=== PATIENT | male | born 1960 | race Caucasian/White ===

== ENCOUNTER 2021-10-02 07:42 | Emergency (ER) | payer OTHER, SELFPAY ==
--- NOTE | ~2021-10-02 | XR_ITS ---
EXAMINATION: XR RIBS, LEFT CLINICAL INFORMATION: Fall, left lower rib pain COMPARISON: None TECHNIQUE: 3 views of the left ribs were obtained. FINDINGS: Lungs are clear. No consolidation, pneumothorax, or pleural effusion. The cardiomediastinal silhouette and pulmonary vasculature are normal. Multiple views of left ribs reveal no visible fracture or bony abnormality. Bony thorax is unremarkable except for mild spondylosis throughout mid and lower dorsal spine. The soft tissues are normal. XR/XR ribs LT min 3V w CXR1V IMPRESSION: Unremarkable chest exam. Unremarkable left rib exam. No acute fracture seen.
[2021-10-02 07:50] VITALS: BP 133/85; PULSE 76; RESP 18; TEMP 36.6; O2SAT 100; BMI 29.7
--- NOTE | 2021-10-02 08:22 | ECG_ITS ---
Test Reason : cp Blood Pressure : / mmHG Vent. Rate : 067 BPM Atrial Rate : 067 BPM P-R Int : 150 ms QRS Dur : 088 ms QT Int : 408 ms P-R-T Axes : 005 004 023 degrees QTc Int : 431 ms Normal sinus rhythm RSR' or QR pattern in V1 suggests right ventricular conduction delay Otherwise normal ECG When compared with ECG of 21-APR-2015 20:05, ST no longer elevated in Inferior leads ST no longer depressed in Lateral leads Nonspecific T wave abnormality no longer evident in Lateral leads Referred By: Afshan Phealn Electronically Signed By:EDY AMOS MD
--- NOTE | 2021-10-02 08:24 | ED_ITS ---
HPI - Fall General Chief Complaint: Fall Stated Complaint: fall - lt side abd pain Time Seen by Provider: 10/02/21 08:12 Source: patient Mode of arrival: ambulatory History of Present Illness HPI Narrative: 61-year-old male past medical history of hyperlipidemia, hypertension, MO s/p stent presenting to the ED complaining of intermittent left lower anterior rib/LUQ pain s/p mechanical slip and fall down about 10 stairs this morning around 3:00 a.m. Denies symptoms prior to fall. Reports slipped secondary to wearing socks on hardwood floor landing on buttock/back. Admits to whole body pain, denies head trauma or LOC, has been ambulatory since incident. Denies incontinence/retention. Denies CP/SOB, numbness/tingling Patient takes ASA, denies other anticoagulation MD complaint: fall Onset (ago): hour(s) Related Data Previous Rx's Medication Instructions Recorded acetaminophen 500 mg tablet 500 mg PO Q6H PRN #20 tab 10/02/21 (Tylenol Extra Strength) cyclobenzaprine 5 mg tablet 5 mg PO Q8H PRN 5 Days #14 tab 10/02/21 lidocaine 5 % topical patch 1 patch TOPICAL DAILY PRN #30 ea 10/02/21 (Lidoderm) MDD remove after 12 hours Allergies Allergy/AdvReac Type Severity Reaction Status Date / Time No Known Allergies Allergy Unverified 07/21/20 14:42 [No Known Allergies*] Review of Systems Review of Systems: Constitutional: No Fever, No Chills,No Fatigue, No Malaise ENT/Mouth: No Ear Pain, No Nasal Congestion, No sore throat Eyes: No Eye Pain, No Swelling, No Redness Cardiovascular: No Chest Pain, No SOB Respiratory: No Cough, No Dyspnea Gastrointestinal: No Nausea, No Vomiting, No Diarrhea, No Constipation, + Abdominal pain Genitourinary: No Hematuria, No Urinary Incontinence/retention, No Urgency, No Flank Pain Musculoskeletal: + joint pain, + Myalgias, No Joint Swelling Skin: No Skin Lesions, No rash Neuro: No Weakness, No Numbness, No Paresthesias, No Loss of Consciousness, No Dizziness, No Headache Yes all other systems are reviewed and are negative [facility] Past Medical History Attestation statement: The following information was validated with the patient. Medical History (Updated 10/02/21 @ 09:22 by PAMELA Ko) High cholesterol HTN (hypertension) Myocardial infarction Surgical History (Updated 10/02/21 @ 07:55 by Salvador Newman) Hx of heart artery stent Social History Social History Advance Directives: No Physical Exam Vital Signs: Vital Signs: Last Vital Signs Temp 98 F 10/02/21 07:50 Pulse 76 10/02/21 07:50 Resp 18 10/02/21 07:50 BP 133/85 10/02/21 07:50 Pulse Ox 100 10/02/21 07:50 Body Mass Index 29.7 Const: General: cooperative, healthy appearing and no acute distress Orientation/consciousness: patient oriented x3 Limitations: no limitations HENMT: Head: Yes normal to inspection and Yes atraumatic Ears: hearing grossly normal bilaterally General nose exam: Normal external nose present Face and sinus: Yes normal facial exam Eyes: General: appearance normal, both eyes and all related structures EOM: EOMs intact bilaterally Neck: Neck: Yes normal visual inspection and Yes no meningeal signs Chest: Chest palpation & inspection: normal inspection of the chest, no crepitus and no tenderness Resp: Effort & Inspection: normal respiratory effort, no respiratory distress, no stridor and not tachypneic Auscultation: clear to auscultation bilaterally Cardio: Rate: regular rate Heart sounds: S1 normal heart sound present and S2 normal heart sound present GI: Inspection: Yes normal to inspection Palpation (GI): Soft to palpation, nontender, no guarding and not rigid : General: Yes no CVA tenderness Back/Spine/Pelvis: Other: No midline thoracic/lumbar spinous tenderness/Step- off or deformity.. No paraspinal tenderness Back: no CVA tenderness Skin: Rashes: no rashes Wounds: no wounds Neuro: General: patient oriented x3, tone normal, moves all extremities, no meningeal signs and no focal motor deficits Gait exam (Neuro): Normal gait present Extrem: General: Yes normal to inspection Course Course Course Narrative: XR ribs LT min 3V w CXR1V IMPRESSION: Unremarkable chest exam. ? Unremarkable left rib exam. No acute fracture seen. >> worsening signs and symptoms and strict return precautions discussed with patient he verbalized understanding feel safe for discharge home to follow-up with PCP MDM - Fall MDM Narrative Medical decision making narrative: 61-year-old male past medical history of hyperlipidemia, hypertension, MO s/p stent presenting to the ED complaining of intermittent left lower anterior rib/LUQ pain s/p mechanical slip and fall down about 10 stairs this morning around 3:00 a.m. On exam vital signs stable, NAD/nontoxic, no midline spinous tenderness throat, no rib tenderness/crepitus, abdomen is soft/nontender. Concern for MSK pain versus rib contusion. Rule out fracture. Low concern for ACS, intra-abdominal injury/retroperitoneal hematoma/bleeding or splenic injury Plan: EKG, CXR/rib series Differential Diagnosis Differential diagnosis: Likely fracture Medical Records Attestation: I reviewed the patient's medical records. Lab Data Attestation: I reviewed the patient's lab results. ECG Data Attestation: I personally reviewed and interpreted this ECG as follows: ECG interpretation date: 10/02/21 ECG interpretation time: 09:23 Interpretation: EKG normal sinus rhythm with a rate of 67. MT interval 150. QRS 88. QTC 431. Nonischemic/no STEMI Discharge Plan Discharge Clinical Impression: Rib pain on left side Patient Disposition: Home, Self-Care Instructions: Rib Contusion (ED) Additional Instructions: Your Your x-rays are unremarkable, it is likely you have a bruised rib. pain is likely musculoskeletal Flexeril is a muscle relaxer, take at night as it makes you drowsy, do not drive, drink alcohol, or operate machinery while taking it Lidoderm patches are numbing patches, apply to painful area In addition take Tylenol at home If symptoms persist or worsen, pain becomes unbearable, He develops shortness breath, chest pain, fever, urinary retention or incontinence, or weakness return to the ED Prescriptions: New acetaminophen [Tylenol Extra Strength] 500 mg tablet 500 mg PO Q6H PRN (Reason: pain or fever) Qty: 20 RF: 0 lidocaine [Lidoderm] 5 % adhesive patch,medicated 1 patch topical DAILY MDD remove after 12 hours PRN (Reason: pain) Qty: 30 RF: 0 cyclobenzaprine 5 mg tablet 5 mg PO Q8H PRN (Reason: pain (scale score 7-10)) 5 Days Qty: 14 RF: 0 Referrals: Physician,Unknown J [Primary Care Provider] - 2 days
== END 2021-10-02 09:57 | disposition home or self-care (01) ==
PROVIDERS: Emergency Provider Emergency Medicine
DX: R07.81 Pleurodynia (principal); R10.32 Left lower quadrant pain; Z79.899 Other long term (current) drug therapy
CPT/HCPCS: 71101; 93005; 99283; 99284

== ENCOUNTER → 2021-10-05 11:35 | Outpatient (BNVA) | payer OTHER, SELFPAY | PROVIDERS: Visit Provider Physician Assistant | DX: S61.012A Laceration without foreign body of left thumb without damage to nail, initial encounter (principal); W26.8XXA Contact with other sharp object(s), not elsewhere classified, initial encounter | CPT/HCPCS: 12002; 99202 ==

== ENCOUNTER → 2021-10-06 07:53 | Outpatient (BNVA) | payer OTHER, SELFPAY | PROVIDERS: Visit Provider Internal Medicine | DX: S61.012A Laceration without foreign body of left thumb without damage to nail, initial encounter (principal); W23.1XXA Caught, crushed, jammed, or pinched between stationary objects, initial encounter | CPT/HCPCS: 99213 ==

== ENCOUNTER → 2021-10-13 07:45 | Outpatient (BNVA) | payer OTHER, SELFPAY | PROVIDERS: Visit Provider Internal Medicine | DX: Z48.02 Encounter for removal of sutures (principal); S61.012A Laceration without foreign body of left thumb without damage to nail, initial encounter; W23.0XXA Caught, crushed, jammed, or pinched between moving objects, initial encounter | CPT/HCPCS: 99212; 99213 ==

== ENCOUNTER 2022-12-24 05:11 | Emergency (ER) | payer OTHER, SELFPAY ==
[2022-12-24 05:17] VITALS: BP 135/82; PULSE 91; RESP 16; TEMP 36.7; O2SAT 99; BMI 29.2
--- NOTE | 2022-12-24 06:48 | ED.SKABFB ---
HPI - Skin/Abscess/Foreign Bdy General Chief complaint: Skin/Abscess/Foreign Body Stated complaint: Abscess -Groin area Time Seen by Provider: 12/24/22 06:43 Source: patient Mode of arrival: ambulatory Limitations: no limitations History of Present Illness HPI narrative: left groin abscess for 4 days complaint: abscess/boil Onset (ago): day(s) Tetanus up to date: yes Severity: mild Quality: burning, stabbing and sharp Pain Consistency: constant Associated symptoms: denies other symptoms Treatments prior to arrival: none Related Data Home Medications Medication Instructions Recorded Confirmed atorvastatin 40 mg tablet 40 mg PO DAILY 07/20/22 metoprolol succinate 50 mg 50 mg PO DAILY 07/20/22 tablet,extended release 24 hr Previous Rx's Medication Instructions Recorded acetaminophen 500 mg tablet 500 mg PO Q6H PRN pain or fever 10/02/21 (Tylenol Extra Strength) #20 tabs amoxicillin 875 mg-potassium 1 tab PO BID 10 days #20 tabs 07/20/22 clavulanate 125 mg tablet prednisone 20 mg tablet 40 mg PO DAILY 5 days #10 tabs 07/20/22 Allergies Allergy/AdvReac Type Severity Reaction Status Date / Time No Known Allergies Allergy Verified 07/20/22 10:50 [No Known Allergies*] Review of Systems Review of Systems: Yes all other systems are reviewed and are negative Integumentary/Breasts: Comments: pain, swelling and redness Neurologic: Denies Sensory deficit (Neuro) [facility] Past Medical History Medical History High cholesterol HTN (hypertension) Myocardial infarction Surgical History Hx of heart artery stent Social History Social History Patient Tobacco Use Status: Current everyday Tobacco user Advance Directives: No Advance Directives Information Provided: Yes Physical Exam Vital Signs: Vital Signs: Last Vital Signs Temp 98.7 F 12/24/22 07:43 Pulse 72 12/24/22 07:43 Resp 17 12/24/22 07:43 BP 119/76 12/24/22 07:43 Pulse Ox 98 12/24/22 07:43 O2 Del Method 12/24/22 07:43 BMI result Body Mass Index 29.2 Const: General: healthy appearing Nutritional Appearance: average body habitus Orientation/consciousness: oriented to person and patient oriented x3 Limitations: no limitations HEENT: Head: Yes normal to inspection Ears: external ears normal General nose exam: Normal external nose present Mouth: Normal oral and palatal mucosa present and oropharynx normal Throat: Yes posterior oropharynx normal Eyes: General: appearance normal, both eyes and all related structures Neck: Other: supple Neck: Yes normal visual inspection Chest: Chest palpation & inspection: normal inspection of the chest Resp: Auscultation: clear to auscultation bilaterally Cardio: Jugular venous distension: no JVD Rate: regular rate Rhythm: regular rhythm Heart sounds: S1 normal heart sound present and S2 normal heart sound present GI: Inspection: Yes normal to inspection Palpation (GI): Soft to palpation, nontender and No hepatosplenomegaly present Auscultation: normal bowel sounds : General: Yes no CVA tenderness Back/Spine/Pelvis: Back: no CVA tenderness Skin: Other: left groin with redness and swelling Neuro: General: oriented to person and patient oriented x3 Cranial nerves: Yes CN's II-XII intact bilaterally Motor exam (neuro): 5/5 motor strength present throughout Sensory Exam: No Sensory deficit (Neuro) Extrem: General: Yes normal to inspection Psych: Appearance: grossly normal Course Reevaluation(s) Reevaluation #1: abscess drained will dc home Time: 09:09 Medical Decision Making Lab Data MDM Lab Attestation statement: I reviewed the patient's lab results. 12/24/22 07:38 12/24/22 07:38 Labs: Lab Results 12/24/22 12/24/22 Range/Units 07:38 07:38 WBC 9.0 (4.8-10.8) X10*3/uL RBC 4.74 (4.60-5.80) X10*6/uL Hgb 15.4 (14.0-18.0) g/dl Hct 45.0 (42.0-52.0) % MCV 94.9 (80.0-98.0) fL MCH 32.5 (27.0-33.0) pg MCHC 34.2 (31.0-36.0) g/dl RDW 12.6 (11.0-16.0) % Plt Count 172 (160-400) X10*3/uL MPV 9.6 (9.4-12.4) fL Immature Gran % (Auto) 0.3 (0.0-0.4) % Neut % (Auto) 80.7 H (45-73) % Lymph % (Auto) 11.8 L (20-40) % [place] % (Auto) 6.7 (2-11) % Eos % (Auto) 0.2 (0-4) % Baso % (Auto) 0.3 (0-2) % Lymph # (Auto) 1.1 L (1.2-4.9) X10*3/uL [place] # (Auto) 0.6 (0.1-1.2) X10*3/uL Eos # (Auto) 0.0 (0.0-0.4) X10*3/uL Baso # (Auto) 0.0 (0.0-0.2) X10*3/uL Abs Immat Gran (auto) 0.03 (0.00-0.03) X10*3/uL Absolute Neuts (auto) 7.3 (2.0-8.3) x10*3/uL Absolute Nucleated RBC 0.000 (0.0-0.012) X10*3/uL Nucleated RBC % (auto) 0.0 (0.0-0.2) /100WBC Sodium 139 (135-145) mmol/L Potassium 4.9 (3.3-5.1) mmol/L Chloride 107 (96-108) mmol/L Carbon Dioxide 25 (22-29) mmol/L Anion Gap 12 (12-20) BUN 11 (9-16) mg/dL Creatinine 0.82 (0.5-1.4) mg/dL Estim Creat Clear Calc 103.5 Estimated GFR > 60 Random Glucose 84 (60-115) mg/dL Calcium 9.1 (8.4-10.2) mg/dL Total Bilirubin 0.8 (0.0-1.0) mg/dL AST 17 (5-37) U/L ALT 13 (0-40) U/L Alkaline Phosphatase 86 (39-117) U/L Total Protein 7.5 (6.5-8.0) g/dL Albumin 3.5 (3.5-5.0) g/dL Independent Interpretation Interpretation: bedside ultrasound of the left inuguinal area shows large abscess Procedures Procedure Narrative Procedure Narrative: Patient prepped and draped in sterile fashion. 1% epi with lidocaine used for anesthesia. 11 blade used, pus removed, packing placed. Patient tolerated procedure well Discharge Plan Discharge Clinical Impression: Abscess of skin or subcutaneous tissue Patient Disposition: Home, Self-Care Instructions: Abscess (ED) Additional Instructions: packing removal in 48 hours, return for increased redness and swelling Prescriptions: No Action acetaminophen [Tylenol Extra Strength] 500 mg tablet 500 mg PO Q6H PRN (Reason: pain or fever) Qty: 20 0RF atorvastatin 40 mg tablet 40 mg PO DAILY metoprolol succinate 50 mg tablet extended release 24 hr 50 mg PO DAILY prednisone 20 mg tablet 40 mg PO DAILY 5 Days Qty: 10 0RF amoxicillin-pot clavulanate 875-125 mg tablet 1 tab PO BID 10 Days Qty: 20 0RF Referrals: Physician,None [Primary Care Provider] - 1 week
[2022-12-24 07:42] LABS: MANUAL DIFF FLAG NO
[2022-12-24 07:43] VITALS: BP 119/76; PULSE 72; RESP 17; TEMP 37.1; O2SAT 98
[2022-12-24 07:43] LABS: Basophils Percent Auto 0.3 % (0-2); Eosinophils Percent Auto 0.2 % (0-4); Hemoglobin 15.4 g/dl (14.0-18.0); Imm Gran Abs Auto 0.03 X10*3/uL (0.00-0.03); Imm Gran Pct Auto 0.3 % (0.0-0.4); Lymphocytes Absolute Auto 1.1 X10*3/uL (1.2-4.9); Lymphocytes Percent Auto 11.8 % (20-40); Mean Corpuscular HGB Conc 34.2 g/dl (31.0-36.0); Mean Corpuscular Hemoglobin 32.5 pg (27.0-33.0); Mean Corpuscular Volume 94.9 fL (80.0-98.0); Mean Platelet Volume 9.6 fL (9.4-12.4); Monocytes Absolute Auto 0.6 X10*3/uL (0.1-1.2); Monocytes Percent Auto 6.7 % (2-11); Neutrophils Absolute Auto 7.3 x10*3/uL (2.0-8.3); Neutrophils Percent Auto 80.7 % (45-73); Platelet Count 172 X10*3/uL (160-400); Red Blood Count 4.74 X10*6/uL (4.60-5.80); Red Cell Distribution Width 12.6 % (11.0-16.0)
[2022-12-24 08:00] VITALS: RESP 18
[2022-12-24 08:00] LABS: Alanine Aminotransferase 13 U/L (0-40); Albumin Level 3.5 g/dL (3.5-5.0); Alkaline Phosphatase 86 U/L (39-117); Anion Gap 12 (12-20); Aspartate Amino Transferase 17 U/L (5-37); Bilirubin Total 0.8 mg/dL (0.0-1.0); Blood Urea Nitrogen 11 mg/dL (9-16); Calcium 9.1 mg/dL (8.4-10.2); Carbon Dioxide 25 mmol/L (22-29); Chloride 107 mmol/L (96-108); Creatinine Clr Calc Pharmacy 103.5; Estimated Glomerular Filt Rate > 60; Glucose Random 84 mg/dL (60-115); Potassium 4.9 mmol/L (3.3-5.1); Sodium 139 mmol/L (135-145); Total Protein 7.5 g/dL (6.5-8.0)
== END 2022-12-24 09:45 | disposition home or self-care (01) ==
PROVIDERS: Emergency Provider Emergency Medicine
DX: L02.214 Cutaneous abscess of groin (principal); F17.200 Nicotine dependence, unspecified, uncomplicated; Z71.6 Tobacco abuse counseling; Z79.899 Other long term (current) drug therapy
CPT/HCPCS: 10060; 36415; 80053; 85025; 99284

== ENCOUNTER 2024-06-03 16:42 | Emergency (ER) | payer OTHER, SELFPAY ==
--- NOTE | ~2024-06-03 | US_ITS ---
EXAMINATION: US VENOUS ULTRASOUND WITH DOPPLER LOWER EXTREMITY, RIGHT CLINICAL INFORMATION: Thigh pain COMPARISON: None available. TECHNIQUE: Ultrasound of the deep veins is performed from the hip to the calf with compression sonography and color and pulse Doppler assessment. Spectral analysis with color-flow imaging is performed. FINDINGS: There is normal venous compression and respiratory variation and augmented flow. The visualized common femoral vein, superficial femoral vein, profunda femoral vein, popliteal vein, and the trifurcation region shows no evidence of deep venous thrombosis. There is no significant popliteal fossa cyst. A small knee joint effusion is present. The contralateral left common femoral vein appears normal. If the patient's symptoms persist, followup ultrasound in 5 days 7 days might be of value to exclude proximal propagation from a non-visualized calf vein. US/US venous duplex LE RT IMPRESSION: No DVT demonstrated in the right lower extremity.
[2024-06-03 16:46] VITALS: BP 108/78; PULSE 75; RESP 16; TEMP 36.6; O2SAT 98; BMI 28.3
--- NOTE | 2024-06-03 16:48 | ED.LOWEXIN ---
HPI - Extremity Injury (Lower) General Chief Complaint: Extremity Injury, Lower Stated Complaint: Right leg pain Time Seen by Provider: 06/03/24 17:40 Source: patient Mode of arrival: ambulatory Limitations: no limitations History of Present Illness HPI Narrative: Patient is a 64-year-old male who presents emergency department for evaluation of intermittent right lower extremity pain. Reports onset approximately 1-1.5 months ago. Reports pain is worse with ambulation and alleviates with rest. Pain is felt from the thigh all the way down to the calf. Onto occurrences he has taken ibuprofen 400 mg which typically helps with the pain in addition to rest. He admits to having a cardiac history with stenting and reports compliance with his aspirin. He denies any history of DVT/PE. He denies any redness warmth or fevers. Related Data Home Medications ?Medication ?Instructions ?Recorded ?Confirmed atorvastatin 40 mg tablet 40 mg PO DAILY 07/20/22 01/31/23 metoprolol succinate 50 mg 50 mg PO DAILY 07/20/22 01/31/23 tablet,extended release 24 hr Previous Rx's ?Medication ?Instructions ?Recorded acetaminophen 500 mg tablet 500 mg PO Q6H PRN pain or fever 10/02/21 (Tylenol Extra Strength) #20 tabs cephalexin 500 mg capsule 500 mg PO QID cellulitis 7 days 03/06/23 #28 caps Allergies Allergy/AdvReac Type Severity Reaction Status Date / Time No Known Allergies Allergy Verified 06/03/24 16:49 [No Known Allergies*] Review of Systems Review of Systems: Yes all other systems are reviewed and are negative PMFSH Past Medical History Attestation statement: The following information was validated with the patient. Source: old records reviewed Medical History High cholesterol HTN (hypertension) Myocardial infarction Surgical History Hx of heart artery stent Social History Social History Alcohol intake: unknown Patient Tobacco Use Status: Current everyday Tobacco user Smoked in Last 30 Days: Yes Use of substances other than those prescribed or required for medical reasons: No Advance Directives: No Advance Directives Information Provided: No Do you have a plan to hurt others: No Plan Physical Exam Vital Signs: Vital Signs: Last Vital Signs Temp 98.6 F 06/03/24 17:42 Pulse 64 06/03/24 17:42 Resp 16 06/03/24 17:42 BP 115/70 06/03/24 17:42 Pulse Ox 97 06/03/24 17:42 O2 Del Method Room Air 06/03/24 17:42 BMI result Body Mass Index 28.3 Appearance: Alert.?Oriented to person, place and time. No acute distress.?Normal affect. Eyes: Pupils equal, round and reactive to light.? ENT: Pharynx normal.?? Neck: Normal inspection.? Neck supple.?? CVS: Heart sounds normal. Normal heart rate and rhythm.? Pulses normal.?? Respiratory: No respiratory distress.? Lung sounds clear to auscultation bilaterally?? Abdomen: Soft and non-tender. Normoactive bowel sounds. Skin: Skin warm and dry.? Normal skin color.? Extremities: No lower extremity edema.? No calf ttp. No erythema or warmth. 2+ DP/PT pulse bilaterally. Full range of motion to right hip knee and ankle. ? Neuro: Moves all extremities spontaneously. Sensation intact bilaterally. Ambulates with normal steady gait. Course Course Course Narrative: This is a Rapid Medical Examination (RME) performed by Hector Barker PA-C in triage. Full HPI, ROS, assessment and treatment plan per primary provider in the Main ED. 64 yo male hx of HDL, HTN, MA w/ stent on AC presents to the ED today for eval of RLE pain x1 month, worsening over the last few days. pain extends from right thigh down to right calf. + no calf tenderness. no noted swelling/ erythema to RLE. Plan: labs, venous duplex Medical Decision Making Medical Decision Making MDM Narrative: Patient is a 64-year-old male with past medical history of HDL, HTN, MA w/ stent on aspirin who presents emergency department for evaluation of exertional right lower extremity pain as per HPI. Overall appears well, nontoxic, afebrile. Extremity is neurovascularly intact distally, no sign of infectious symptoms. Venous duplex ultrasound was obtained prior to my assumption of care and is without evidence of DVT. Examination is not consistent with peripheral ischemia, arterial occlusion. Symptoms appear most consistent with claudication which is more likely given his cardiac history. He is already taking aspirin. I advised close outpatient follow-up with his client service representative as scheduled, and reviewed worrisome signs and symptoms that would warrant re-evaluation emergency department. All questions answered. Stable for discharge Differential Diagnosis Differential Diagnoses: The differential diagnosis associated with the presentation includes (See narrative above) Admission/Observation Consideration of admission/observation: Escalation of care including admission/observation considered Lab Data MDM Lab Attestation statement: I reviewed the patient's lab results. CBC is without leukocytosis anemia or thrombocytopenia. No electrolyte derangement. No SONNY. 06/03/24 17:07 06/03/24 17:07 Labs: Lab Results 06/03/24 Range/Units 17:07 WBC 5.3 (4.8-10.8) X10*3/uL RBC 4.33 L (4.60-5.80) X10*6/uL Hgb 14.9 (14.0-18.0) g/dl Hct 42.6 (42.0-52.0) % MCV 98.4 H (80.0-98.0) fL MCH 34.4 H (27.0-33.0) pg MCHC 35.0 (31.0-36.0) g/dl RDW 13.1 (11.0-16.0) % Plt Count 163 (160-400) X10*3/uL MPV 10.2 (9.4-12.4) fL Immature Gran % (Auto) 0.2 (0.0-0.4) % Neut % (Auto) 59.1 (45-73) % Lymph % (Auto) 34.4 (20-40) % [place] % (Auto) 5.1 (2-11) % Eos % (Auto) 0.8 (0-4) % Baso % (Auto) 0.4 (0-2) % Lymph # (Auto) 1.8 (1.2-4.9) X10*3/uL [place] # (Auto) 0.3 (0.1-1.2) X10*3/uL Eos # (Auto) 0.0 (0.0-0.4) X10*3/uL Baso # (Auto) 0.0 (0.0-0.2) X10*3/uL Abs Immat Gran (auto) 0.01 (0.00-0.03) X10*3/uL Absolute Neuts (auto) 3.2 (2.0-8.3) x10*3/uL Absolute Nucleated RBC 0.000 (0.0-0.012) X10*3/uL Nucleated RBC % (auto) 0.0 (0.0-0.2) /100WBC PT 12.5 (11.1-13.3) SEC INR 1.0 (0.9-1.1) Sodium 136 (135-145) mmol/L Potassium 3.8 (3.3-5.1) mmol/L Chloride 105 (96-108) mmol/L Carbon Dioxide 25 (22-29) mmol/L Anion Gap 10 L (12-20) BUN 13 (9-16) mg/dL Creatinine 0.87 (0.5-1.4) mg/dL Estim Creat Clear Calc 96.5 Estimated GFR > 60 Random Glucose 88 (60-115) mg/dL Calcium 9.2 (8.4-10.2) mg/dL Total Bilirubin 0.7 (0.0-1.0) mg/dL AST 21 (5-37) U/L ALT 18 (0-40) U/L Alkaline Phosphatase 65 (39-117) U/L Total Protein 7.9 (6.5-8.0) g/dL Albumin 3.6 (3.5-5.0) g/dL Independent Interpretation I performed an independent interpretation of an: Ultrasound (No DVT) Radiology Impression Discussion of test interpretation with radiology: I have reviewed the radiologist's reading. Radiologist Impression: US/US venous duplex LE RT IMPRESSION: No DVT demonstrated in the right lower extremity. External Record Review External record reviewed: Outpatient record Prescription Management I considered prescription management with: Pain Medication (Acetaminophen, aspirin) Discharge Plan Discharge Clinical Impression: Claudication of right lower extremity Patient Disposition: Home, Self-Care Instructions: Peripheral Vascular Disease (ED) Additional Instructions: As discussed, your ultrasound today does not show evidence of a blood clot which is very reassuring. Pulses are present in your leg as well. There was no sign of infection. Your blood work today was overall reassuring. As discussed, the pain that you are describing sounds most consistent with claudication of the leg, which is typically a symptom of peripheral vascular disease. Continue taking your medications as prescribed including her aspirin, and follow-up with your client service representative as scheduled. They may consider additional testing or referring you to a vascular specialist. Return back to emergency department any new or worsening symptoms or concerns. Prescriptions: No Action acetaminophen [Tylenol Extra Strength] 500 mg tablet 500 mg PO Q6H PRN (Reason: pain or fever) Qty: 20 0RF atorvastatin 40 mg tablet 40 mg PO DAILY metoprolol succinate 50 mg tablet extended release 24 hr 50 mg PO DAILY cephalexin 500 mg capsule 500 mg PO QID 7 Days Qty: 28 0RF Referrals: Physician,Unknown J [Primary Care Provider] - Print Language: [place]i
[2024-06-03 17:25] LABS: MANUAL DIFF FLAG NO
[2024-06-03 17:35] LABS: Prothrombin Time 12.5 SEC (11.1-13.3)
[2024-06-03 17:42] VITALS: BP 115/70; PULSE 64; RESP 16; TEMP 37; O2SAT 97
--- NOTE | 2024-06-03 17:43 | MHC.EDTECH ---
This pct just assumed care of patient vitals taken ,Patient at bedside ,Call preciado within Patient reach .
[2024-06-03 17:49] LABS: Alanine Aminotransferase 18 U/L (0-40); Albumin Level 3.6 g/dL (3.5-5.0); Alkaline Phosphatase 65 U/L (39-117); Anion Gap 10 (12-20); Aspartate Amino Transferase 21 U/L (5-37); Bilirubin Total 0.7 mg/dL (0.0-1.0); Blood Urea Nitrogen 13 mg/dL (9-16); Calcium 9.2 mg/dL (8.4-10.2); Carbon Dioxide 25 mmol/L (22-29); Chloride 105 mmol/L (96-108); Creatinine Clr Calc Pharmacy 96.5; Estimated Glomerular Filt Rate > 60; Glucose Random 88 mg/dL (60-115); Potassium 3.8 mmol/L (3.3-5.1); Sodium 136 mmol/L (135-145); Total Protein 7.9 g/dL (6.5-8.0)
[2024-06-03 17:54] LABS: Basophils Percent Auto 0.4 % (0-2); Eosinophils Percent Auto 0.8 % (0-4); Hematocrit 42.6 % (42.0-52.0); Hemoglobin 14.9 g/dl (14.0-18.0); Imm Gran Abs Auto 0.01 X10*3/uL (0.00-0.03); Imm Gran Pct Auto 0.2 % (0.0-0.4); Lymphocytes Absolute Auto 1.8 X10*3/uL (1.2-4.9); Lymphocytes Percent Auto 34.4 % (20-40); Mean Corpuscular Hemoglobin 34.4 pg (27.0-33.0); Mean Corpuscular Volume 98.4 fL (80.0-98.0); Mean Platelet Volume 10.2 fL (9.4-12.4); Monocytes Absolute Auto 0.3 X10*3/uL (0.1-1.2); Monocytes Percent Auto 5.1 % (2-11); Neutrophils Absolute Auto 3.2 x10*3/uL (2.0-8.3); Neutrophils Percent Auto 59.1 % (45-73); Platelet Count 163 X10*3/uL (160-400); Red Blood Count 4.33 X10*6/uL (4.60-5.80); Red Cell Distribution Width 13.1 % (11.0-16.0); White Blood Count 5.3 X10*3/uL (4.8-10.8)
[2024-06-03 19:12] VITALS: BP 115/70; PULSE 64; RESP 16; TEMP 37; O2SAT 97
== END 2024-06-03 19:12 | disposition home or self-care (01) ==
PROVIDERS: Physician Assistant Medical; Emergency Provider Emergency Medicine
DX: I70.211 Atherosclerosis of native arteries of extremities with intermittent claudication, right leg (principal); M79.661 Pain in right lower leg; I10 Essential (primary) hypertension; E78.00 Pure hypercholesterolemia, unspecified; I25.2 Old myocardial infarction; F17.200 Nicotine dependence, unspecified, uncomplicated; Z79.899 Other long term (current) drug therapy; Z79.82 Long term (current) use of aspirin; Z79.02 Long term (current) use of antithrombotics/antiplatelets
CPT/HCPCS: 36415; 80053; 85025; 85610; 93971; 99284

== ENCOUNTER 2024-10-20 07:58 | Outpatient (AMB) | payer OTHER, SELFPAY ==
--- NOTE | 2024-10-20 08:06 | AM.OFFWIN_ITS ---
Intake Vital Signs 10/20/24 08:08 Height 5 ft 10 in Weight 216 lb BMI 31.0 BP 114/80 Blood Pressure Location Lt brachial Position Sitting Pulse 75 Pulse Source Pulse Oximeter Pulse Oximetry (%) 98 Oxygen Delivery Method Room Air Intake Visit Reasons: EP Rash Intake Note: Patient here for rash in groin area that he noticed this morning, he also has a spot by the left knee that is painful. Patient Tobacco Use Status: Current everyday Tobacco user Allergies No Known Allergies [No Known Allergies*] Allergy (Verified 10/20/24 08:13) Do you need a note to return to daycare/school/sports/work: No HPI HPI Comments History of Present Illness Details History of Present Illness The patient is a 64-year-old male presenting with a rash and a burning sensation, suspected to be shingles. The symptoms started a few days ago when he noticed a burning sensation, initially thought to be dry skin, followed by the appearance of a rash after a shower. His girlfriend suggested it might be shingles. The rash was observed to have vesicles that were likely scratched and scabbed over, primarily located around the groin and extending to the inner left knee. The patient reported no known recent contact with individuals with shingles but understands shingles can activate from dormant varicella-zoster virus acquired during childhood chickenpox. He mentioned increased stress due to workplace issues, believing it contributed to the outbreak, which has been causing significant discomfort. He has past medical history suggesting cardiovascular stress, linked with workplace-induced stress, and has previously undergone stent placement. The rash and associated discomfort have been present for 3 to 4 days, with no significant previous interventions reported prior to this visit. Physical Exam General: Cooperative, healthy appearing, comfortable, no acute distress and well developed Orientation: Patient oriented x3 Limitations: No limitations Head: Normal to inspection Ears: Hearing grossly normal bilaterally Nose: Normal external nose present Face and sinus: Normal facial exam Eyes: Appearance normal, both eyes and all related structures Neck: Normal visual inspection and Yes full ROM Respiratory: Normal respiratory effort and able to speak in complete sentences. Skin: erythema with small fluid filled vesicle with erythematous base and surrounding erythema noted on the left upper hip, scabbed over areas on inner left knee, rash is in the L4 dermatome. Neuro: Patient oriented x3 Extremities: Normal to inspection, as above [facility] Medical History High cholesterol HTN (hypertension) Myocardial infarction Surgical History Hx of heart artery stent Social History Alcohol intake: unknown Patient Tobacco Use Status: Current everyday Tobacco user Review of Systems Const All systems reviewed & are unremarkable except as noted in HPI and below Physical Exam Vital Signs: Last Vital Signs Pulse 75 10/20/24 08:08 BP 114/80 10/20/24 08:08 Pulse Ox 98 10/20/24 08:08 Oxygen Delivery Method Room Air 10/20/24 08:08 BMI result Body Mass Index 31.0 Assessment & Plan Assessment & Plan (1) Shingles: Code(s): B02.9 - Zoster without complications Qualifiers: Herpes zoster complications: without complications Qualified Code(s): B02.9 - Zoster without complications Plan: Plan - Provide rx for acyclovir, considering recent appearance of new vesicles, to manage the acute herpes zoster infection. - Prescribe gabapentin to manage neuropathic pain associated with herpes zoster. Advise caution while using gabapentin due to potential side effects. - Discuss with the patient the use of [id number] analgesics like acetaminophen for additional pain relief but highlight that gabapentin is more effective for nerve related pain. - Advise on hygiene measures to prevent potential transmission, particularly handwashing after touching affected areas. - Advise patient on recognizing and managing stress, given its potential role in exacerbation of dermatological symptoms. Patient was informed and verbally consented to the use of an ambient scribe for clinic note documentation during this visit. Medications: New gabapentin 100 mg PO TID PRN 14 caps 0RF pain valacyclovir 1,000 mg PO Q8H 7 days 21 tabs 0RF Coding Level of Care Code New Pt Level 3 (70305) Diagnoses Herpes zoster without complication B02.9 Herpes zoster complications: without complications
[2024-10-20 08:08] VITALS: BP 114/80; PULSE 75; O2SAT 98; BMI 31.0
== END 2024-10-20 08:43 | disposition home or self-care (01) ==
PROVIDERS: Visit Provider Physician Assistant
DX: B02.9 Zoster without complications (principal)

== ENCOUNTER → 2024-10-20 07:58 | Outpatient (BNVA) | payer OTHER, SELFPAY | PROVIDERS: Visit Provider Physician Assistant ==